=== PATIENT | female | born 1965 | race Caucasian/White ===

== ENCOUNTER 2019-05-12 14:01 | Observation (INO) | payer MEDICARE, MEDICAID ==
[2019-05-07 11:14] LABS: BASOPHILS % (AUTO) 0.5 % (0-1); EOSINOPHILS # (AUTO) 0.2 X10'3 (0-0.9); EOSINOPHILS % (AUTO) 2.2 % (0-6); HEMATOCRIT 40.8 % (35.0-45.0); HEMOGLOBIN 13.4 g/dl (12.0-16.0); LYMPHOCYTES # (AUTO) 4.2 X10'3 (1.1-4.8); LYMPHOCYTES % (AUTO) 48.9 % (21-51); MEAN CORPUSCULAR HEMOGLOBIN 30.2 PG (27.0-31.0); MEAN CORPUSCULAR HGB CONC 32.8 g/dL (33.0-36.5); MEAN CORPUSCULAR VOLUME 92.2 FL (78-98); MEAN PLATELET VOLUME 9.3 FL (7.4-10.4); MONOCYTES # (AUTO) 0.4 X10'3 (0-0.9); MONOCYTES % (AUTO) 4.8 % (2-12); NEUTROPHILS # (AUTO) 3.7 X10'3 (1.8-7.7); NEUTROPHILS % (AUTO) 43.6 % (42-75); PLATELET COUNT 257 X10'3 (140-440); RED BLOOD COUNT 4.43 X10'6 (4.20-5.60); WHITE BLOOD COUNT 8.6 X10'3 (4.5-11.0)
[2019-05-07 11:19] LABS: ALBUMIN 3.7 G/DL (3.4-5.0); ANION GAP 8 (8-16); BLOOD UREA NITROGEN 7 MG/DL (7-18); BUN/CREATININE RATIO 10.6 (6.6-38.0); CALCIUM 8.3 MG/DL (8.5-10.1); CHLORIDE 107 MMOL/L (99-107); CREATININE 0.66 MG/DL (0.40-0.90); GLUCOSE 143 MG/DL (70-104); POTASSIUM 4.3 MMOL/L (3.5-5.1); SODIUM 142 MMOL/L (135-145); TOTAL CARBON DIOXIDE 26.8 MMOL/L (24-32); eGFR > 90 ML/MIN
[2019-05-07 11:27] LABS: PARTIAL THROMBOPLASTIN TIME 26 SECONDS (22-32)
[2019-05-12] VITALS (7 sets, daily range): BP systolic 98–124; BP diastolic 56–69
[~2019-05-12] VITALS: Ht 157.5 cm; Wt 65.9 kg
[2019-05-12] MEDS ORDERED: diphenhydrAMINE 25mg capsule PO PRN (14:30)
[2019-05-12] MEDS ORDERED: LORazepam 0.5 MG tablet PO PRN (14:30)
[2019-05-12] MEDS ORDERED: normal saline 1,000 ML IV SCH (14:30)
[2019-05-12] MEDS ORDERED: METF500T PO (15:38)
[2019-05-12] MEDS ORDERED: CYCL-394 PO (15:38)
[2019-05-12] MEDS ORDERED: ATOR80TA PO (15:38)
[2019-05-12] MEDS ORDERED: SERT-153 PO (15:38)
[2019-05-12] MEDS ORDERED: LISI-600 PO (15:38)
[2019-05-12] MEDS ORDERED: HYDR-4353 PO (15:38)
[2019-05-12] MEDS ORDERED: FLUT1DIS4 INH (15:38)
[2019-05-12] MEDS ORDERED: CLOP75TA35 PO (15:38)
[2019-05-12] MEDS ORDERED: fentaNYL/PF 50MCG/1 ML 2ML syringe ONE (19:11)
[2019-05-12] MEDS ORDERED: LIDOcaine 1% (10mg/ml)w/preservative injection 20ml MDV ONE (19:11)
[2019-05-12] MEDS ORDERED: midazolam 2 mg/2 ml injection ONE (19:11)
[2019-05-12] MEDS ORDERED: iohexol 350MG/ML 100ml bottle IV ONE (19:12)
--- NOTE | 2019-05-12 20:30 | NUR ---
Patient in room PCU 3028. I have received report from Rug Drying Machine Operator RN and had the opportunity to ask questions and assume patient care with Garima PARADA.
--- NOTE | 2019-05-12 21:30 | NUR ---
Assessed patients groin site and back for bleeding, bruising, and pain. Mild tenderness noted upon palpation to groin site, no bleeding or bruising noted. Assisted patient up to ambulate to the bathroom to void. Patients gait was stable and she was able to void. Reassessed groin site for bleeding post ambulation, no bleeding noted. Discontinued IV, catheter tip intact. Provided discharge instructions to patient and family regarding follow up care, warning signs, medication instructions, and medication side effects. Patient and family verbalize understanding. Vital signs stable at time of discharge. Patient and family escorted out via wheelchair and one staff member.
--- NOTE | 2019-05-12 21:30 | NUR ---
[place]rientee documentation: I have reviewed and agree with all interventions, meds given, assessments performed and documented by Garima PARADA.
== END 2019-05-12 22:13 | disposition home or self-care (01) ==
LOC: SSTAY O 14:01 → PCU 3S 20:48
PROVIDERS: ADMIT Internal Medicine Interventional Cardiology; ATTEND Internal Medicine Interventional Cardiology
DX: I35.0 Nonrheumatic aortic (valve) stenosis (principal); I25.10 Atherosclerotic heart disease of native coronary artery without angina pectoris; J44.9 Chronic obstructive pulmonary disease, unspecified; G47.33 Obstructive sleep apnea (adult) (pediatric); I10 Essential (primary) hypertension; I35.1 Nonrheumatic aortic (valve) insufficiency; I65.29 Occlusion and stenosis of unspecified carotid artery; I67.2 Cerebral atherosclerosis; E11.51 Type 2 diabetes mellitus with diabetic peripheral angiopathy without gangrene; E78.00 Pure hypercholesterolemia, unspecified; Z86.73 Personal history of transient ischemic attack (TIA), and cerebral infarction without residual deficits; Z79.02 Long term (current) use of antithrombotics/antiplatelets; Z99.81 Dependence on supplemental oxygen; Z79.84 Long term (current) use of oral hypoglycemic drugs; Z79.899 Other long term (current) drug therapy
CPT/HCPCS: 36415; 80048; 82948; 85025; 85610; 85730; 93005; 93458; C1769; G0378; J1644; J2001; J2250; J3010; J7030; Q0163; Q9967; 99152; A4620; A6258

== ENCOUNTER 2022-11-14 14:26 | Emergency (ER) | payer MEDICARE, MEDICAID ==
[~2022-11-14] VITALS: Ht 157.5 cm; Wt 64.0 kg
[~2022-11-14 14:26] MED LIST: ALBU8.5H17 INH; ATOR-2 PO; CLOP75TA34 PO; HYDR-4353 PO; LISI5TAB22 PO; METF500T PO; SERT-153 PO
[2022-11-14] MEDS ORDERED: ondansetron 4mg rapidly disintigrating tab PO STA (16:08)
[2022-11-14] MEDS ORDERED: simethicone 80mg chew tab PO ONE (16:10)
[2022-11-14] MEDS ORDERED: pantoprazole 40mg Tablet.DR PO ONE (16:10)
[2022-11-14 16:13] LABS: CLARITY,URINE SLIGHTLY CLOUDY (Clear); COLOR,URINE YELLOW (Yellow); GLUCOSE, URINE 500 mg/dl (Neg); KETONES,URINE >=80 mg/dl (Neg); LEUKOCYTE ESTERASE ,URINE NEGATIVE (Neg); NITRITES, URINE NEGATIVE (Neg); OCCULT BLOOD,URINE NEGATIVE (Neg); PROTEIN,URINE NEGATIVE (Neg); UROBILINOGEN,URINE 0.2 E.U/dL (0.2-1.0)
[2022-11-14 16:16] LABS: BASOPHILS # (AUTO) 0.1 X10'3 (0-0.2); BASOPHILS % (AUTO) 0.7 % (0-1); EOSINOPHILS # (AUTO) 0.2 X10'3 (0-0.9); EOSINOPHILS % (AUTO) 1.5 % (0-6); HEMATOCRIT 49.3 % (35.0-45.0); HEMOGLOBIN 16.5 g/dl (12.0-16.0); LYMPHOCYTES # (AUTO) 4.5 X10'3 (1.1-4.8); MEAN CORPUSCULAR HEMOGLOBIN 31.2 PG (27.0-31.0); MEAN CORPUSCULAR HGB CONC 33.5 g/dL (33.0-36.5); MEAN CORPUSCULAR VOLUME 93.2 FL (78-98); MEAN PLATELET VOLUME 9.7 FL (7.4-10.4); MONOCYTES # (AUTO) 0.7 X10'3 (0-0.9); MONOCYTES % (AUTO) 6.6 % (2-12); NEUTROPHILS # (AUTO) 4.8 X10'3 (1.8-7.7); NEUTROPHILS % (AUTO) 47.2 % (42-75); PLATELET COUNT 230 X10'3 (140-440); RED BLOOD COUNT 5.29 X10'6 (4.20-5.60); RED CELL DISTRIBUTION WIDTH 14.1 % (11.5-14.5); WHITE BLOOD COUNT 10.3 X10'3 (4.5-11.0)
[2022-11-14 16:21] LABS: UA COLLECTION TYPE CLN CATCH MIDSTREAM
[2022-11-14 16:22] LABS: BACTERIA,URINE FEW /HPF (Neg); MUCUS STRANDS MANY /LPF (Neg); RBC,URINE NONE SEEN /HPF (0-2); SQUAMOUS EPITHELIAL CELL,UR MANY /LPF (FEW); WBC,URINE 0-4 /HPF (0-4)
[2022-11-14 16:28] LABS: ALANINE AMINOTRANSFERASE 50 U/L (12-78); ALBUMIN 4.1 G/DL (3.4-5.0); ALBUMIN/GLOBULIN RATIO 1.1 (1.1-1.5); ALKALINE PHOSPHATASE 69 IU/L (46-116); ANION GAP 9 (8-16); ASPARTATE AMINO TRANSFERASE 28 U/L (10-37); BILIRUBIN,TOTAL 0.4 MG/DL (0.1-1.0); BLOOD UREA NITROGEN 12 MG/DL (7-18); BUN/CREATININE RATIO 18.2 (10.0-20.0); CALCIUM 10.3 MG/DL (8.5-10.1); CHLORIDE 104 MMOL/L (99-107); CREATININE 0.66 MG/DL (0.40-0.90); GLUCOSE 89 MG/DL (70-104); LIPASE 100 U/L (73-393); POTASSIUM 4.1 MMOL/L (3.5-5.1); SODIUM 140 MMOL/L (135-145); TOTAL CARBON DIOXIDE 27.4 MMOL/L (24-32); TOTAL PROTEIN 7.7 G/DL (6.4-8.2); eGFR > 90 ML/MIN
[2022-11-14] MEDS ORDERED: SIME80TA15 PO (16:42)
[2022-11-14] MEDS ORDERED: PANT-47 PO (16:42)
[2022-11-14 16:48] VITALS: BP 115/80
== END 2022-11-14 16:49 | disposition home or self-care (01) ==
LOC: ER 14:26
DX: K29.00 Acute gastritis without bleeding (principal); J44.9 Chronic obstructive pulmonary disease, unspecified; F17.200 Nicotine dependence, unspecified, uncomplicated
CPT/HCPCS: 36415; 80053; 81001; 83690; 85025; 99284